=== PATIENT | female | born 1980 | race Caucasian/White ===

== ENCOUNTER 2024-01-15 13:58 | Inpatient (IN) | payer MEDICAID ==
[~2024-01-15] VITALS: Ht 152.4 cm; Wt 65.9 kg
[~2024-01-15 13:58] MED LIST: ETAN50CA3 SQ; LEVO750T68 PO; METR-172 PO; PANT40TA PO; SUCR1TAB PO
[2024-01-15 15:20] LABS: BASOPHILS # (AUTO) 0.07 K/uL (0.00-0.20); BASOPHILS % (AUTO) 0.9 % (0.0-5.0); EOSINOPHILS # (AUTO) 0.17 K/uL (0.00-0.70); EOSINOPHILS % (AUTO) 2.3 % (0.0-8.0); HEMATOCRIT 39.3 % (36-48); IMMATURE GRANULOCYTE ABSOLUTE 0.03 K/uL (0-1); LYMPHOCYTES # (AUTO) 2.2 K/uL (1.0-4.8); LYMPHOCYTES % (AUTO) 29.3 % (21.0-51.0); MEAN CORPUSCULAR HEMOGLOBIN 26.3 pg (27.0-33.0); MEAN CORPUSCULAR HGB CONC 31.8 g/dL (32.0-36.0); MEAN CORPUSCULAR VOLUME 82.7 fL (79-99); MONOCYTES # (AUTO) 0.5 K/uL (0.1-1.0); NEUTROPHILS # (AUTO) 4.6 K/uL (1.8-7.7); NEUTROPHILS % (AUTO) 61.1 % (40.0-77.0); PLATELET COUNT (AUTO) 471 K/uL (130-400); RED BLOOD CELL COUNT(AUTO) 4.75 MIL/uL (4.00-5.50); RED CELL DISTRIBUTION WIDTH 13.8 % (11.0-15.5); WHITE BLOOD COUNT (AUTO) 7.5 K/uL (4.8-10.8)
[2024-01-15] MEDS: VANCOMYCIN KIT 1 GM/250 ML IV.KIT IV ONE (15:46)
[2024-01-15] MEDS: 0.9%NACL 1000ML 1,000 ML IV ONE (15:47)
[2024-01-15 16:31] LABS: CREATININE 0.7 mg/dL (0.5-1.5); POTASSIUM 3.6 mmol/L (3.5-5.1)
[2024-01-15] MEDS ORDERED: TEMAZEPAM 15 MG CAPSULE PO PRN (18:00)
[2024-01-15] MEDS ORDERED: ZOSYN 3.375GM +NS 50ML IV SCH (18:00)
[2024-01-15] MEDS ORDERED: ACETAMINOPHEN 325 MG TAB PO PRN (18:00)
[2024-01-15] MEDS ORDERED: VANCOMYCIN PROTOCOL PER PHARMACY IV SCH (18:00)
[2024-01-15] MEDS ORDERED: HYDRALAZINE 20MG/ML VIAL IV PRN (18:00)
[2024-01-15] MEDS: HYDROMORPHONE 0.5 MG SYG (0.5MG/0.5ML) IVP ONE (18:14)
[2024-01-15] MEDS: ZOSYN 3.375GM +NS 50ML IV ONE (18:37)
[2024-01-15] MEDS: FAMOTIDINE 20MG TAB PO SCH (20:51)
[2024-01-15] MEDS: INSULIN HUMULIN R 100 UNIT/ML 3ML SQ SCH (20:52)
[2024-01-15] MEDS ORDERED: VANCOMYCIN KIT 1 GM/250 ML IV.KIT IV SCH (21:00)
[2024-01-15 21:55] VITALS: BP 144/88; PULSE 51; RESP 18
[2024-01-15 23:56] VITALS: BP 121/83; PULSE 55; RESP 16
[2024-01-16] VITALS (8 sets, daily range): BP systolic 99–140; BP diastolic 58–84; PULSE 56–72; RESP 14–20; O2SAT 97–98
[2024-01-16] MEDS ORDERED: SULF1TAB42 PO (01:56)
[2024-01-16] MEDS: VANCOMYCIN 1G/250ML KIT 250 ML IV SCH (05:25)
[2024-01-16 06:16] LABS: HEMATOCRIT 32.6 % (36-48); MEAN CORPUSCULAR HEMOGLOBIN 26.9 pg (27.0-33.0); MEAN CORPUSCULAR HGB CONC 31.6 g/dL (32.0-36.0); MEAN CORPUSCULAR VOLUME 85.1 fL (79-99); RED BLOOD CELL COUNT(AUTO) 3.83 MIL/uL (4.00-5.50); RED CELL DISTRIBUTION WIDTH 13.5 % (11.0-15.5); WHITE BLOOD COUNT (AUTO) 6.9 K/uL (4.8-10.8)
[2024-01-16 06:43] LABS: CREATININE 0.6 mg/dL (0.5-1.5); MAGNESIUM 1.9 mg/dL (1.80-2.40); POTASSIUM 3.7 mmol/L (3.5-5.1)
[2024-01-16] MEDS: PANTOPRAZOLE 40 MG TAB DR PO SCH (09:02)
[2024-01-16] MEDS: SUCRALFATE 1 GM TABLET PO SCH (09:02)
[2024-01-16] MEDS: TRAMADOL HCL 50 MG TABLET PO PRN (09:05)
[2024-01-16] MEDS: ENOXAPARIN SODIUM 40 MG/0.4 ML SYRINGE SQ SCH (09:06)
[2024-01-16] MEDS: LEVOFLOXACIN 750 MG/D5W 150 ML 150 ML IV SCH (09:06)
[2024-01-16] MEDS: ONDANSETRON 4MG INJ IVP PRN (12:02)
[2024-01-16] MEDS: CEFEPIME HCL 2 GM VIAL IVPB SCH (17:13)
[2024-01-17] VITALS (9 sets, daily range): BP systolic 94–137; BP diastolic 49–80; PULSE 47–66; RESP 17–20; O2SAT 99–100
[2024-01-17 05:53] LABS: ALBUMIN 2.8 g/dL (3.5-5.0); BILIRUBIN,TOTAL 0.5 mg/dL (0.2-1.0); CREATININE 0.8 mg/dL (0.5-1.5); POTASSIUM 3.4 mmol/L (3.5-5.1); TOTAL PROTEIN, SERUM 6.7 g/dL (6.0-8.3); VANCOMYCIN TROUGH 11.9 UG/ML (10.0-20.0)
[2024-01-17] MEDS ORDERED: POTASSIUM CHLORIDE 20MEQ/100ML 100 ML IV PRN (07:00)
[2024-01-17] MEDS ORDERED: POTASSIUM CHLORIDE 10% ELIXIR 20 MEQ/15 ML UDCUP PO PRN (07:00)
[2024-01-17] MEDS: KCL 20 MEQ ERTAB PO PRN (07:17)
[2024-01-17] MEDS: HYDROCODONE/ACETAMINOPHEN 5/325 MG TAB PO PRN (18:38)
[2024-01-18] VITALS (7 sets, daily range): BP systolic 104–137; BP diastolic 60–85; PULSE 56–80; RESP 16–19; O2SAT 99
[2024-01-18 06:29] LABS: BASOPHILS # (AUTO) 0.07 K/uL (0.00-0.20); BASOPHILS % (AUTO) 1.3 % (0.0-5.0); EOSINOPHILS # (AUTO) 0.33 K/uL (0.00-0.70); HEMATOCRIT 30.8 % (36-48); IMMATURE GRANULOCYTE ABSOLUTE 0.01 K/uL (0-1); LYMPHOCYTES # (AUTO) 2.3 K/uL (1.0-4.8); LYMPHOCYTES % (AUTO) 41.4 % (21.0-51.0); MEAN CORPUSCULAR HEMOGLOBIN 26.6 pg (27.0-33.0); MEAN CORPUSCULAR HGB CONC 31.8 g/dL (32.0-36.0); MEAN CORPUSCULAR VOLUME 83.5 fL (79-99); MONOCYTES # (AUTO) 0.5 K/uL (0.1-1.0); MONOCYTES % (AUTO) 9.1 % (3.0-13.0); NEUTROPHILS # (AUTO) 2.3 K/uL (1.8-7.7); PLATELET COUNT (AUTO) 351 K/uL (130-400); RED BLOOD CELL COUNT(AUTO) 3.69 MIL/uL (4.00-5.50); RED CELL DISTRIBUTION WIDTH 13.4 % (11.0-15.5); WHITE BLOOD COUNT (AUTO) 5.5 K/uL (4.8-10.8)
[2024-01-18 06:40] LABS: ALBUMIN 2.6 g/dL (3.5-5.0); BILIRUBIN,TOTAL 0.6 mg/dL (0.2-1.0); CREATININE 0.7 mg/dL (0.5-1.5); MAGNESIUM 1.7 mg/dL (1.80-2.40); POTASSIUM 3.6 mmol/L (3.5-5.1); TOTAL PROTEIN, SERUM 6.3 g/dL (6.0-8.3)
[2024-01-19 03:28] VITALS: BP 112/71; PULSE 59; RESP 16
[2024-01-19 08:00] VITALS: BP 115/69; PULSE 65; RESP 18
[2024-01-19 08:45] VITALS: O2SAT 99
[2024-01-19] MEDS: LEVOFLOXACIN 750 MG TABLET PO SCH (10:08)
[2024-01-19 12:00] VITALS: BP 131/80; PULSE 56; RESP 18
[2024-01-19] MEDS ORDERED: LEVO750T68 PO (13:42)
== END 2024-01-19 16:00 | disposition home or self-care (01) | DRG 813 ==
LOC: EDH 13:58 → EDHIP 13:59 → OBSVTOIN 13:59 → 3CH 21:31
PROVIDERS: ADMIT Internal Medicine; ATTEND Internal Medicine
DX: T81.31XA Disruption of external operation (surgical) wound, not elsewhere classified, initial encounter (principal); D84.9 Immunodeficiency, unspecified; L73.2 Hidradenitis suppurativa; L40.50 Arthropathic psoriasis, unspecified; B96.4 Proteus (mirabilis) (morganii) as the cause of diseases classified elsewhere; Y83.8 Other surgical procedures as the cause of abnormal reaction of the patient, or of later complication, without mention of misadventure at the time of the procedure; Y92.89 Other specified places as the place of occurrence of the external cause; Z91.040 Latex allergy status; Z98.84 Bariatric surgery status; Z90.710 Acquired absence of both cervix and uterus
CPT/HCPCS: 36415; 80048; 80053; 80202; 82948; 83605; 83735; 84100; 84145; 85025; 85027; 85378; 87040; 87070; 87076; 96374; 96375; G0378; J0692; J1170; J1650; J1956; J2405; J2543; J3370; J7030

== ENCOUNTER 2024-09-04 19:41 | Emergency (ER) | payer MEDICAID ==
[~2024-09-04] VITALS: Ht 152.4 cm; Wt 57.2 kg
[~2024-09-04 19:41] MED LIST changes: -METR-172 PO
[2024-09-04] MEDS: ondanSETRON 4MG INJ IVP ONE (20:34)
[2024-09-04] MEDS: LACTATED RINGERS 1000ML 1,000 ML IV ONE (20:34)
[2024-09-04 20:35] LABS: BASOPHILS # (AUTO) 0.04 K/uL (0.00-0.20); BASOPHILS % (AUTO) 0.5 % (0.0-5.0); EOSINOPHILS # (AUTO) 0.02 K/uL (0.00-0.70); EOSINOPHILS % (AUTO) 0.2 % (0.0-8.0); HEMATOCRIT 41.1 % (36-48); IMMATURE GRANULOCYTE ABSOLUTE 0.02 K/uL (0-1); LYMPHOCYTES # (AUTO) 2.3 K/uL (1.0-4.8); LYMPHOCYTES % (AUTO) 26.5 % (21.0-51.0); MEAN CORPUSCULAR HEMOGLOBIN 27.7 pg (27.0-33.0); MEAN CORPUSCULAR HGB CONC 32.4 g/dL (32.0-36.0); MEAN CORPUSCULAR VOLUME 85.4 fL (79-99); MONOCYTES # (AUTO) 0.6 K/uL (0.1-1.0); MONOCYTES % (AUTO) 6.4 % (3.0-13.0); NEUTROPHILS # (AUTO) 5.8 K/uL (1.8-7.7); NEUTROPHILS % (AUTO) 66.2 % (40.0-77.0); PLATELET COUNT (AUTO) 345 K/uL (130-400); RED BLOOD CELL COUNT(AUTO) 4.81 MIL/uL (4.00-5.50); RED CELL DISTRIBUTION WIDTH 14.1 % (11.0-15.5); WHITE BLOOD COUNT (AUTO) 8.8 K/uL (4.8-10.8)
[2024-09-04] MEDS: morPHINE 4 MG SYG IVP ONE ×2 (20:35→23:15)
[2024-09-04 20:45] LABS: CREATININE 0.7 mg/dL (0.5-1.0); POTASSIUM 3.1 mmol/L (3.5-5.1)
[2024-09-04] MEDS ORDERED: IOHEXOL 350 MG/ML 100ML INFUS..BTL IV ONE (20:48)
--- NOTE | 2024-09-04 20:50 | ERN ---
General Chief Complaint: Abdominal Pain Stated Complaint: ABDOMINAL PAIN, SENT BY DOCTOR Time Seen by MD: 19:42 History of Present Illness Initial Comments Mrs Vijay veloz is a very pleasant 44-year-old female significant past medical history of gastric bypass, GERD, history of ovarian tumors who presents today with left lower quadrant pain. Patient reports that the pain has gotten worse with urination. Patient reports she has low-grade fevers. Patient states that the pain is moderate. Patient denies any other symptomatology other than exquisite left lower quadrant pain with no radiation. Allergies: Coded Allergies: Latex, Natural Rubber (Unverified Allergy, Unknown, 09/15/23) fluconazole (Verified Allergy, Unknown, 09/15/23) rubber, unspecified (Unverified Allergy, Unknown, 09/15/23) Home Meds Active Scripts Levofloxacin (Levaquin 750Mg Tabs) 750 Mg Tablet, 750 MG PO DAILY for 10 Days, #10 TAB Prov:RENAE BRO NP 01/19/24 Sucralfate (Carafate) 1 Gram Tablet, 1 GM PO BID for 30 Days, #60 TAB Prov:JACKIE CORTEZ 09/19/23 Pantoprazole Sodium (Protonix) 40 Mg Tablet.dr, 40 MG PO DAILY for 30 Days, #30 TAB Prov:JACKIE CORTEZ 09/19/23 Reported Medications Etanercept (Enbrel) 50 Mg/Ml (1 Ml) Cartridge, 50 MG SQ QWEEK, CARTRIDGE 09/17/23 Past Medical History Past Medical History: Other Medical History Other: HX OF HYPOGLYCEMIA Past Surgical History: Hysterectomy, Other, Bariatric Surgery Surgical History Other: MINI GASTRIC BYPASS Social History Social History: Negative, Lives with family ROS Dictation Constitutional: Negative for fever,chills, and weight loss Eyes: Negative for injury, pain,redness, and discharge ENT: Negative for injury,pain or swelling Cardiovascular: Negative for chest pain, palpitations, and edema Respiratory: Negative for shortness of breath, cough, and wheezing, Abdomen/GI: Positive for abdominal pain Back: Negative for injury and pain : Negative for injury, bleeding and discharge MS/Extremity: Negative for injury and deformity Skin: Negative for rash, and discoloration Neuro: Negative for headache, weakness, numbness, tingling, and seizure Psych: Negative for suicide ideation, homicidal ideation, and hallucinations Physical Exam Physical Exam Dictation General: awake, alert, NAD Head/Face: Normocephalic, atraumatic Eyes: PERRL, EOMI, vision at baseline ENT: oral cavity clear, Neck: Trachea midline, supple, Cardiovascular: RRR, normal S1/S2, No MRGs, no JVD Respiratory: CTAB, no respiratory distress, No rales or wheezes Abdomen: Pain with palpation in the left lower quadrant Skin: Warm, dry, normal turgor, no rash MS/Extremity: Pulses equal, no cyanosis, neurovascular intact, FROM Neuro: COAx4, GCS 15, strength 5/5, Results Laboratory and Microbiology Lab and Micro Result Laboratory Tests Test 09/04/24 20:12 09/04/24 20:15 Urine Color YELLOW (YELLOW) Urine Appearance CLEAR (CLEAR) Urine pH 6.0 (5.0-8.0) Urine Specific Magazine 1.025 (1.001-1.031) Urine Protein NEGATIVE mg/dL (NEGATIVE) Urine Glucose (UA) NEGATIVE mg/dL (NEGATIVE) Urine Ketones 20 mg/dL (NEGATIVE) H Urine Occult Blood NEGATIVE (NEGATIVE) Urine Nitrate NEGATIVE (NEGATIVE) Urine Bilirubin NEGATIVE mg/dL (NEGATIVE) Urine Urobilinogen 0.2 mg/dL (0.2-1.0) Urine Leukocyte Esterase NEGATIVE Nathan/uL Urine RBC 2-5 /HPF (0-1) H Urine WBC 0-1 /HPF (0-1) Urine Squamous Epithelial Cells RARE /HPF (0-2) Urine Bacteria None /HPF (None Seen) Urine HCG, Qualitative NEGATIVE (NEGATIVE) White Blood Count 8.8 K/uL (4.8-10.8) Red Blood Count 4.81 MIL/uL (4.00-5.50) Hemoglobin 13.3 g/dL (12.0-16.0) Hematocrit 41.1 % (36-48) Mean Corpuscular Volume 85.4 fL (79-99) Mean Corpuscular Hemoglobin 27.7 pg (27.0-33.0) Mean Corpuscular Hemoglobin Concent 32.4 g/dL (32.0-36.0) Red Cell Distribution Width 14.1 % (11.0-15.5) Platelet Count 345 K/uL (130-400) Mean Platelet Volume 8.6 fL (7.5-10.5) Immature Granulocyte % (Auto) 0.2 % (0-1) Neutrophils (%) (Auto) 66.2 % (40.0-77.0) Lymphocytes (%) (Auto) 26.5 % (21.0-51.0) Monocytes (%) (Auto) 6.4 % (3.0-13.0) Eosinophils (%) (Auto) 0.2 % (0.0-8.0) Basophils (%) (Auto) 0.5 % (0.0-5.0) Neutrophils # (Auto) 5.8 K/uL (1.8-7.7) Lymphocytes # (Auto) 2.3 K/uL (1.0-4.8) Monocytes # (Auto) 0.6 K/uL (0.1-1.0) Eosinophils # (Auto) 0.02 K/uL (0.00-0.70) Basophils # (Auto) 0.04 K/uL (0.00-0.20) Absolute Immature Granulocyte (auto 0.02 K/uL (0-1) Nucleated Red Blood Cells 0.0 % (0.0-0.19) Sodium Level 136 mmol/L (136-145) Potassium Level 3.1 mmol/L (3.5-5.1) L Chloride Level 99 mmol/L (101-111) L Carbon Dioxide Level 28 mmol/L (21-32) Blood Urea Nitrogen 13 mg/dL (7-18) Creatinine 0.7 mg/dL (0.5-1.0) Glomerular Filtration Rate Calc 110 mL/min (>90) Random Glucose 94 mg/dL (70-105) Total Calcium 9.6 mg/dL (8.5-10.1) Total Bilirubin 1.0 mg/dL (0.2-1.0) Aspartate Amino Transf (AST/SGOT) 20 U/L (10-37) Alanine Aminotransferase (ALT/SGPT) 34 U/L (12-78) Alkaline Phosphatase 119 U/L (50-136) Total Protein 8.0 g/dL (6.0-8.3) Albumin 4.0 g/dL (3.5-5.0) Amylase Level 37 U/L (25-115) Lipase 30 U/L (16-77) MDM Patient has CT scan that is reflective of an enteritis. MDM: Differential diagnosis: Enteritis Rationale: Tests considered and ordered secondary to shared decision making include: Previous outside records reviewed: Old ER visits. Risk of complication and/or morbidity or mortality of patient management: None Medications-Per medication reconciliation Need for hospitalization: Patient does not meet criteria for hospitalization. Need for emergency major/minor surgery: No There are no social concerns with this patient. Prescription drug management Prescriptions will include symptomatic care Patient's prior external medical records from other ER visits were reviewed by me as indicated. Prior testing and results from previous visits were reviewed. Prior tests were taken into account with medical decision making and resource utilization, independent historian/historians were used to obtain complete medical history. I independently interpreted the test that were performed, results were reviewed by me and considered findings on radiology if ordered. Medical management and examination interpretation discussions were had by me with other qualified healthcare professionals as indicated for the patient's care. ED Course Orders Procedure Category Date Status Time Cbc With Differential LAB 09/04/24 Complete 20:11 Comprehensive LAB 09/04/24 Complete Metabolic Panel 20:11 Amylase LAB 09/04/24 Complete 20:11 ,Urine Test LAB 09/04/24 Complete 20:11 Ct Abdomen/Pelvis CT 09/04/24 Resulted W/Contrast 20:11 Lactated Ringers PHA 09/04/24 Complete 1000ml (Lactated 20:30 Morphine 4mg Syg PHA 09/04/24 Complete (Morphine 4mg Syg) 20:30 Ondansetron 4mg Inj PHA 09/04/24 Complete (Zofran 4mg Inj) 20:30 Lipase LAB 09/04/24 Complete 20:11 Iohexol (Omnipaque) PHA 09/04/24 Complete 20:48 Potassium Chloride PHA 09/04/24 Complete 20meq Er (K-Dur/Klor- 22:00 Urinalysis LAB 09/04/24 Complete W/Microscopic 22:14 Current Medications Medications (Trade) Dose Ordered Sig/Luc Route PRN Reason Start Time Stop Time Status Last Admin Dose Admin Iohexol (Omnipaque) 35,000 mg STK-MED ONCE IV 09/04/24 20:48 09/04/24 20:48 DC Lactated Ringer's 1,000 ml @ 0 mls/hr ONCE ONCE IV 09/04/24 20:30 09/04/24 20:31 DC 09/04/24 20:34 Morphine Sulfate (morPHINE 4MG SYG) 4 mg ONCE ONCE IVP 09/04/24 20:30 09/04/24 20:31 DC 09/04/24 20:35 Ondansetron HCl (zoFRAN 4MG INJ) 4 mg ONCE ONCE IVP 09/04/24 20:30 09/04/24 20:31 DC 09/04/24 20:34 Potassium Chloride (K-Dur/Klor-Con 20meq) 60 meq ONCE ONCE PO 09/04/24 22:00 09/04/24 22:01 DC 09/04/24 22:06 Vital Signs Date Time Temp Pulse Resp B/P (MAP) Pulse Ox O2 Delivery O2 Flow Rate FiO2 09/04/24 19:49 97.9 63 18 146/77 100 Room Air DX & DISP Disposition: Discharge Departure Impression: Primary Impression: Enteritis Condition: Stable Scripts Metronidazole (Flagyl) 375 Mg Capsule 500 MG PO Q12H, #21 CAP Prov: DILIP AMAYA MD 09/04/24 Ciprofloxacin HCl (Cipro) 250 Mg Tablet 500 MG PO q12, #14 TAB Prov: DILIP AMAYA MD 09/04/24 Additional Instructions: With your primary care physician in the next 1-7 days for continuance of care. If abdominal pain gets worse please come back to the emergency department Referrals: TELMA BENEDICT (PCP) DILIP AMAYA MD Sep 04, 2024 20:49
--- NOTE | 2024-09-04 21:17 | HMCIMG ---
CT ABDOMEN/PELVIS W/CONTRAST HISTORY: Abdominal Pain TECHNIQUE: CT ABDOMEN/PELVIS W/CONTRAST Omnipaque contrast was used. Oral contrast was not given. Coronal and sagittal reformats were obtained. CT was performed with one or more of the following dose reduction techniques: Automated exposure control, adjustment of the mA and/or kV according to the patient's size, or use of the iterative reconstruction technique. Comparison: None. FINDINGS: No pulmonary consolidation or pleural effusion is seen. Liver and gallbladder are within normal limits. The spleen, pancreas, and adrenal glands are within normal limits. No hydronephrosis. The urinary bladder is partially distended. Gastric bypass and hysterectomy changes are noted. Fluid-filled loops of small bowel suggesting enteritis in the proper clinical setting. The appendix was not clearly visualized limiting evaluation. Correlate clinically. No bowel obstruction is seen. Atherosclerotic changes of the aorta with calcified plaques. Degenerative changes of the spine are seen. IMPRESSION: Fluid-filled loops of small bowel suggesting enteritis in the proper clinical setting. The appendix was not clearly visualized limiting evaluation. Correlate clinically. No bowel obstruction is seen.
[2024-09-04] MEDS: PoTASSium chloRIDE 20MEQ ER 20 MEQ ERTAB PO ONE (22:06)
[2024-09-04 22:29] LABS: APPEARANCE,URINE CLEAR (CLEAR); BILIRUBIN,URINE NEGATIVE (NEGATIVE); COLOR,URINE YELLOW (YELLOW); GLUCOSE, URINE (UA) NEGATIVE (NEGATIVE); KETONES,URINE 20 mg/dL (NEGATIVE); LEUKOCYTE ESTERASE ,URINE NEGATIVE Leu/uL (NEGATIVE); NITRATE,URINE NEGATIVE (NEGATIVE); OCCULT BLOOD,URINE NEGATIVE (NEGATIVE); PROTEIN,URINE NEGATIVE (NEGATIVE); UROBILINOGEN,URINE 0.2 mg/dL (0.2-1.0)
[2024-09-04 22:38] LABS: MUCUS,URINE RARE LPF (None Seen); SQUAMOUS EPITHELIAL CELL,UR RARE /HPF (0-2); WBC,URINE 0-1 /HPF (0-1)
[2024-09-04] MEDS ORDERED: METR375C2 PO (23:04)
[2024-09-04] MEDS ORDERED: CIPR-279 PO (23:04)
[2024-09-04] MEDS: metRONIDazole 500 MG TABLET PO SCH (23:14)
[2024-09-04] MEDS: levoFLOXacin 750 MG TABLET PO SCH (23:14)
[2024-09-04 23:24] VITALS: BP 136/76; PULSE 76; RESP 18; TEMP 98.3; O2SAT 98
== END 2024-09-04 23:30 | disposition home or self-care (01) ==
LOC: EDH 19:41
DX: K52.9 Noninfective gastroenteritis and colitis, unspecified (principal); K21.9 Gastro-esophageal reflux disease without esophagitis; Z79.899 Other long term (current) drug therapy; Z88.3 Allergy status to other anti-infective agents; Z90.710 Acquired absence of both cervix and uterus; Z91.040 Latex allergy status; Z98.84 Bariatric surgery status; Z98.890 Other specified postprocedural states
CPT/HCPCS: 99285; 74177; 96374; 96375; 82150; 80053; 83690; 85025; 81001; 81025; 36415; 96376; J7120; J2405; J2270 ×2; Q9967

== ENCOUNTER 2025-10-17 06:16 | Day surgery (SDC) | payer MEDICAID ==
[~2025-10-17] VITALS: Ht 152.4 cm; Wt 72.6 kg
[2025-10-17] VITALS (10 sets, daily range): BP systolic 107–140; BP diastolic 58–96; PULSE 56–80; RESP 14–18; TEMP 97.1–98.2
[2025-10-17] MEDS: 0.9%NACL 1000ML 1,000 ML IV ONE (07:21)
[2025-10-17] MEDS ORDERED: LIDOCAINE PF 100MG/5ML (2%) SYRINGE 5ML ONE (09:36)
--- NOTE | 2025-10-17 10:50 | NUR ---
Full and complete discharge instructions given to Patient and Family both verbally and in writing. Tolerated fluids and voided in bathroom. PIV removed with catheter tip intact. VU to POC and follow up expectations. W/C to POV with Family to home.
== END 2025-10-17 10:50 | disposition home or self-care (01) ==
LOC: ENDO 06:16 → DAH 06:16 → ENDO 10:50
PROVIDERS: ATTEND Surgery
DX: R10.13 Epigastric pain (principal); K22.89 Other specified disease of esophagus; K31.89 Other diseases of stomach and duodenum; K91.1 Postgastric surgery syndromes; M19.90 Unspecified osteoarthritis, unspecified site; E11.9 Type 2 diabetes mellitus without complications; I10 Essential (primary) hypertension; E78.00 Pure hypercholesterolemia, unspecified; F41.9 Anxiety disorder, unspecified; L73.2 Hidradenitis suppurativa; K91.2 Postsurgical malabsorption, not elsewhere classified; F32.A Depression, unspecified; Z98.84 Bariatric surgery status; Z90.710 Acquired absence of both cervix and uterus; Z98.890 Other specified postprocedural states; Z91.040 Latex allergy status; Z88.8 Allergy status to other drugs, medicaments and biological substances; Z79.899 Other long term (current) drug therapy
CPT/HCPCS: 43239; 82948 ×2; J7030 ×2; J2003; J2704 ×2; A4620; A4215; J3490